=== PATIENT | male | born 1935 | race African-American/Black ===

== ENCOUNTER 2021-10-25 16:38 | Emergency (ER) | payer OTHER ==
[~2021-10-25] VITALS: Ht 185.4 cm; Wt 99.0 kg
[2021-10-25 20:49] LABS: BASOPHILS % 0.6 % (0.0-2.0); EOSINOPHILS % 3.7 % (0.0-5.0); HEMATOCRIT. 44.2 % (42.0-52.0); HEMOGLOBIN. 14.7 g/dL (14.0-18.0); LYMPHOCYTES % 30.1 % (20.0-50.0); MEAN CORPUSCULAR HEMOGLOBIN 28.9 pg (28.0-32.0); MEAN CORPUSCULAR VOLUME 86.9 fL (80.0-94.0); MEAN PLATELET VOLUME 7.4 fl (7.4-10.4); MONOCYTES % 6.1 % (2.0-8.0); NEUTROPHILS % 59.5 % (40.0-76.0); PLATELET 173 x1000/uL (130-400); RED BLOOD CELL COUNT 5.09 mill/uL (4.7-6.1); RED CELL DISTRIBUTION WIDTH 15.9 % (11.6-14.6)
[2021-10-25 21:00] LABS: CHLORIDE 108 mEq/L (98-107)
[2021-10-25 21:23] LABS: PROTHROMBIN TIME 44.2 sec (9.6-11.0)
[2021-10-25 21:24] LABS: INR 4.7
[2021-10-25 21:25] LABS: PARTIAL THROMBOPLASTIN TIME 54.4 sec (23.4-31.0)
[2021-10-26 00:38] VITALS: BP 149/65
== END 2021-10-26 00:25 | disposition home or self-care (01) ==
LOC: ER 16:38
DX: R79.1 Abnormal coagulation profile (principal); E11.9 Type 2 diabetes mellitus without complications; E78.00 Pure hypercholesterolemia, unspecified; I10 Essential (primary) hypertension; Z86.73 Personal history of transient ischemic attack (TIA), and cerebral infarction without residual deficits; Z98.890 Other specified postprocedural states
CPT/HCPCS: 36415; 71045; 80053; 83880; 84484; 85025; 86850; 86900; 99284

== ENCOUNTER 2021-10-27 13:51 | Emergency (ER) | payer OTHER ==
[~2021-10-27] VITALS: Ht 182.9 cm; Wt 82.0 kg
[2021-10-27 14:18] VITALS: BP 144/78
[2021-10-27 19:09] LABS: INR 3.1; PROTHROMBIN TIME 30.8 sec (9.6-11.0)
== END 2021-10-28 03:16 | disposition home or self-care (01) ==
LOC: ER 14:07
DX: R79.0 Abnormal level of blood mineral (principal)
CPT/HCPCS: 36415; 99283